=== PATIENT | male | born 2000 | race Caucasian/White ===

== ENCOUNTER 2020-11-13 12:44 | Emergency (ER) | payer MEDICAID ==
[~2020-11-13] VITALS: Ht 180.3 cm; Wt 68.0 kg
[2020-11-13 13:04] VITALS: Ht 180.3 cm; Wt 68.0 kg
[2020-11-13 15:03] VITALS: BP 109/69
== END 2020-11-13 15:03 | disposition home or self-care (01) ==
LOC: ED 12:44
DX: B34.9 Viral infection, unspecified (principal); M54.2 Cervicalgia; M54.5 Low back pain; Z20.822 Contact with and (suspected) exposure to COVID-19; Z88.0 Allergy status to penicillin
CPT/HCPCS: 87804; U0003